=== PATIENT | male | born 1975 | race Caucasian/White ===

== ENCOUNTER 2021-05-04 15:50 | Outpatient (CLI) | payer OTHER, SELFPAY ==
[2021-05-04 16:06] LABS: Hematocrit 43.6 % (40.0-54.0); Hemoglobin 15.9 g/dL (14.0-18.0); Mean Corpuscular HGB Conc 36.5 g/dL (32.0-36.0); Mean Corpuscular Hemoglobin 32.6 pg (27.0-31.0); Mean Corpuscular Volume 89.3 fL (78.0-102.0); Mean Platelet Volume 9.3 fl (8.7-11.0); Platelet Count Result 195 K/mm3 (150-420); Red Blood Count 4.88 M/mm3 (4.70-6.10); Red Cell Distribution Width 11.8 % (11.6-14.4); White Blood Count 6.4 K/mm3 (4.8-10.8)
[2021-05-04 17:06] LABS: Alanine Aminotransferase 86 U/L (16-63); Albumin Level 4.3 g/dL (3.4-5.0); Alkaline Phosphatase 52 U/L (46-116); Bilirubin,Total 0.6 mg/dL (0.00-1.00); Blood Urea Nitrogen 15 mg/dL (7-18); Calcium 8.6 mg/dL (8.5-10.1); Carbon Dioxide 28 mmol/L (21-32); Cholesterol 260 mg/dL (0-200); Estimated Glomerular Filt Rate > 60; HDL Direct 28 mg/dL (40-60); Prostate Specific Antigen 0.7 ng/mL (< OR = 4.0); Total Protein 7.1 g/dL (6.4-8.2)
[2021-05-04 17:16] LABS: Anion Gap 10 mmol/L (8-16); Chloride 101 mmol/L (98-108); Glucose 197 mg/dL (70-99); Osmolality Calculated 293 mOsm/kg (285-295); Potassium 3.5 mmol/L (3.5-5.1); Sodium 139 mmol/L (136-145)
[2021-05-04 17:41] LABS: LDL Cholesterol Calculated 45 mg/dL (<130); Triglycerides 935 mg/dL (0-150)
[2021-05-04 18:11] LABS: Aspartate Amino Transferase 29 U/L (15-37)
[2021-05-04 18:13] LABS: LDL Cholesterol Direct 108 mg/dL (0-130)
== END 2021-05-04 15:51 | disposition home or self-care (01) ==
LOC: CHSLAB 15:53
PROVIDERS: PCP Family Medicine; Visit Provider Family Medicine
DX: I10 Essential (primary) hypertension (principal); Z80.42 Family history of malignant neoplasm of prostate
CPT/HCPCS: 36415; 80053; 80061; 83721; 84153; 85027; G0103

== ENCOUNTER 2021-05-11 08:55 | Outpatient (CLI) | payer OTHER, SELFPAY ==
--- NOTE | 2021-05-11 09:00 | EST_ITS ---
Patient Info Name: Avtar Perez Age: 45 years : 1975 Gender: Male Ht: 75 in Wt: 320 lbs BSA: 2.83 m2 HR: 82 bpm BP: 132 / 84 mmHg Heart Rhythm: Sinus Rhythm Technical Quality: Good Exam Date: 05/11/2021 9:22 AM Exam Location: [facility] Patient Status: Outpatient Admit Date: 05/11/2021 Staff Ordering Physician: Jude Velázquez DO Attending Provider: Jude Velázquez DO Exercise Technologist: Scarlet Isbell CRT Exercise Physician: Marlene Subramanian CEP Exam Type: CA stress test treadmill Study Info Indications ExerciseIntolerance - PreSyncope - SOB - A treadmill exercise stress test was performed. History/Risk Factors Hypertension: Yes History/Risk Factors Hypertension. Summary 1. 1. Negative Chris exercise stress test for ischemic ST changes by ECG criteria. 2. 2. Good functional capacity, achieving 10 METs of workload. 3. 3. Hypertensive response to exercise. 4. 4. Appropriate HR response to exercise. 5. 5. Appropriate HR recovery at 1 minute post exercise. 6. 6. No imaging with stress testing. Protocol: Chris Stress ECG Details Stage: REST Duration (min): 3 min : 39 sec Speed (mph): 0.0 Grade (%): 0 HR (bpm): 83 SBP (mmHg): 132 DBP (mmHg): 84 METS: --- Stage: REST Duration (min): 4 min : 21 sec Speed (mph): 0.0 Grade (%): 0 HR (bpm): 86 SBP (mmHg): 132 DBP (mmHg): 84 METS: --- Stage: STAGE 1 Duration (min): 1 min : 0 sec Speed (mph): 1.7 Grade (%): 10 HR (bpm): 109 SBP (mmHg): 132 DBP (mmHg): 84 METS: --- Stage: STAGE 1 Duration (min): 2 min : 0 sec Speed (mph): 1.7 Grade (%): 10 HR (bpm): 116 SBP (mmHg): 132 DBP (mmHg): 84 METS: --- Stage: STAGE 1 Duration (min): 3 min : 0 sec Speed (mph): 1.7 Grade (%): 10 HR (bpm): 120 SBP (mmHg): 148 DBP (mmHg): 80 METS: --- Stage: STAGE 2 Duration (min): 1 min : 0 sec Speed (mph): 2.5 Grade (%): 12 HR (bpm): 130 SBP (mmHg): 148 DBP (mmHg): 80 METS: --- Stage: STAGE 2 Duration (min): 2 min : 0 sec Speed (mph): 2.5 Grade (%): 12 HR (bpm): 135 SBP (mmHg): 148 DBP (mmHg): 80 METS: --- Stage: STAGE 2 Duration (min): 3 min : 0 sec Speed (mph): 2.5 Grade (%): 12 HR (bpm): 141 SBP (mmHg): 196 DBP (mmHg): 71 METS: --- Stage: STAGE 3 Duration (min): 1 min : 0 sec Speed (mph): 3.4 Grade (%): 14 HR (bpm): 155 SBP (mmHg): 196 DBP (mmHg): 71 METS: --- Stage: STAGE 3 Duration (min): 2 min : 0 sec Speed (mph): 3.4 Grade (%): 14 HR (bpm): 163 SBP (mmHg): 196 DBP (mmHg): 71 METS: --- Stage: STAGE 3 Duration (min): 2 min : 8 sec Speed (mph): 3.4 Grade (%): 14 HR (bpm): 166 SBP (mmHg): 196 DBP (mmHg): 71 METS: --- Stage: RECOVERY Duration (min): 0 min
== END 2021-05-11 08:56 | disposition home or self-care (01) ==
LOC: CHSCARD 08:56
PROVIDERS: PCP Family Medicine; Visit Provider Family Medicine
DX: R06.02 Shortness of breath (principal); I10 Essential (primary) hypertension
CPT/HCPCS: 93017

== ENCOUNTER 2022-09-09 00:50 | Day surgery (SDC) | payer OTHER, SELFPAY ==
[2022-08-26 15:09] VITALS: BMI 37.5
[2022-09-09 06:31] VITALS: BP 143/48; PULSE 85; RESP 17; TEMP 36.4; O2SAT 95
[2022-09-09] MEDS: LACTATED RINGERS 1,000 ML 150 ML IV CONT (06:36)
--- NOTE | 2022-09-09 06:49 | P.PNAN_ITS ---
Anes - Initial Pre Proc Eval Procedure: Operation Date: 09/09/22 07:30 Proposed Procedures p Screening Colonoscopy - Jai Anderson DO Date/Time: 09/09/22 06:49 Surgeon: Jai Anderson DO Pre Op Diagnosis: family hx of colon ca Patient Data Age: 46 Gender: M Height: 1.91 m Weight: 144.9 kg Last Vital Signs Temp 36.4 C 09/09/22 06:31 Pulse 85 09/09/22 06:31 Resp 17 09/09/22 06:31 BP 143/48 H 09/09/22 06:31 Pulse Ox 95 09/09/22 06:31 O2 Del Method Room Air 09/09/22 06:31 Allergies Allergy/AdvReac Type Severity Reaction Status Date / Time No Known Allergies Allergy Verified 09/09/22 06:27 Home Medications Medication Instructions Recorded Confirmed Type atorvastatin 40 mg tablet 40 mg PO DAILY #90 tabs 07/30/22 09/09/22 Rx lisinopril 20 mg tablet 20 mg PO DAILY #90 tabs 07/30/22 09/09/22 Rx Patient hx anesthesia problems: none Family hx anesthesia problems: none Results Review: All pre-operative results and documents have been reviewed as part of the pre- operative evaluation. [facility] Past Medical History Medical History (Updated 09/09/22 @ 06:50 by Jeremías Evangelista DO) Hyperlipidemia Hypertension Surgical History Surgical History Hx of tonsillectomy Family History Family History Mother Family history of diabetes mellitus Father Malignant neoplasm of prostate Social History Social History Smoking status: Never smoker Alcohol intake: current Drinks per week: 6 Substance use type: does not use Living arrangements: with family Spiritual care concerns: No Anes - Eval Final PreProcedure Day of Procedure 09/09/22 06:49 Patient weight: obese Heart: regular rate and rhythm Lungs: clear to auscultation Airway: Mallampati scale class II Neurological: alert and oriented Last oral intake: >/= 8 hours ASA classification: III Emergent: no Anesthetic plan: proceed Anesthesia type and monitoring: general GIVS and standard monitoring Results Review: All pre-operative results and documents have been reviewed as part of the pre- operative evaluation. Informed Consent: The patient's anesthetic plan and its attendant risks and benefits were discussed with the patient/family/POA. Questions were solicited and answers provided to the satisfaction of the patient/family/POA.
--- NOTE | 2022-09-09 07:31 | PM.IMHP ---
H&P: HPI History of Present Illness Date/Time: 09/09/22 07:31 Chief Complaint: Fam hx colon cancer Narrative: This is a 46-year-old man who presents for colonoscopy. He has a family history of colon cancer in his father who was diagnosed in his 70s. He denies any hematochezia or melena. He has never had a colonoscopy. He denies any change in bowel habits. Review of Systems Review of Systems: All systems reviewed & are unremarkable except as noted in HPI and below Constitutional: Constitutional: Denies chills, Denies fever(s), Denies headache(s) and Denies weight loss Eyes: Eyes: Denies change in vision ENT: Denies dizziness, Denies headache(s), Denies neck mass and Denies throat swelling Cardiovascular: Cardiovascular: Denies chest pain, Denies lightheadedness and Denies dyspnea Respiratory: Respiratory: Denies cough, Denies dyspnea and Denies wheezing Gastrointestinal: Gastrointestinal: Denies abdominal pain, Denies change in bowel habits, Denies nausea and Denies vomiting Genitourinary: Genitourinary: Denies hematuria and Denies dysuria Musculoskeletal: Musculoskeletal: Reports as per HPI Integumentary/Breasts: Skin/Breast: Reports as per HPI Neurologic: Denies dizziness and Denies headache(s) Allergic/Immunologic: Allergic/Immunologic: Denies throat swelling and Denies wheezing [facility] Past Medical History Medical History (Updated 09/09/22 @ 06:50 by Jeremías Evangelista DO) Hyperlipidemia Hypertension Surgical History Surgical History Hx of tonsillectomy Family History Family History Mother Family history of diabetes mellitus Father Malignant neoplasm of prostate Social History Social History Smoking status: Never smoker Alcohol intake: current Drinks per week: 6 Substance use type: does not use Living arrangements: with family Spiritual care concerns: No Meds Home Medications and Allergies Home Medications Medication Instructions Recorded Confirmed Type atorvastatin 40 mg tablet 40 mg PO DAILY #90 tabs 07/30/22 09/09/22 Rx lisinopril 20 mg tablet 20 mg PO DAILY #90 tabs 07/30/22 09/09/22 Rx Allergies Allergy/AdvReac Type Severity Reaction Status Date / Time No Known Allergies Allergy Verified 09/09/22 06:27 Vital Signs Vital Signs - 24 hr 09/09/22 06:31 Temperature 36.4 C Pulse Rate 85 Respiratory Rate 17 Blood Pressure 143/48 H Pulse Oximetry 95 Oxygen Delivery Room Air Exam Const: General: no acute distress and alert Orientation/consciousness: patient oriented x3 HENMT: Head: normocephalic and atraumatic Ears: hearing grossly normal bilaterally Face/Nose/Sinus: Normal nares present Mouth: Yes Normal oral and palatal mucosa present Eyes: Periorbital: periorbital findings normal Sclera: sclerae normal EOM: EOMs intact bilaterally Neck: Neck: normal visual inspection, no lymphadenopathy and trachea midline Chest: Chest palpation & inspection: normal inspection of the chest Resp: Effort & Inspection: normal respiratory effort Auscultation: clear to auscultation bilaterally Cardio: Jugular venous distension: no JVD Rate: regular rate Rhythm: regular rhythm Heart sounds: S1 normal heart sound present and S2 normal heart sound present Peripheral pulses: Peripheral pulses 2+ throughout GI: Inspection: normal to inspection GI Palp: Yes Soft to palpation, No Tenderness to palpation present (GI), No Guarding due to palpation present (GI) and No Rebound tenderness present Percussion: Yes normal to percussion Auscultation: normal bowel sounds : General: Yes no CVA tenderness Back/Spine/Pelvis: Back: no CVA tenderness Neuro: General: patient oriented x3, no focal motor deficits and CN's II-XI intact bilaterally Cognition (Neuro): normal cognition Speech: normal speech M
[2022-09-09 07:53] VITALS: BP 118/85; PULSE 76; RESP 24; O2SAT 97
[2022-09-09 08:03] VITALS: BP 130/87; PULSE 70; RESP 23; O2SAT 96
[2022-09-09 08:13] VITALS: BP 134/91; PULSE 70; RESP 20; O2SAT 98
== END 2022-09-09 08:18 | disposition home or self-care (01) ==
PROVIDERS: PCP Family Medicine; Visit Provider Surgery
PROC: 0DJD8ZZ Inspection of Lower Intestinal Tract, Via Natural or Artificial Opening Endoscopic (ICD-10-PCS; CPT 45378; principal; 2022-09-09 07:30)
DX: Z12.11 Encounter for screening for malignant neoplasm of colon (principal); K57.30 Diverticulosis of large intestine without perforation or abscess without bleeding; Z80.0 Family history of malignant neoplasm of digestive organs; I10 Essential (primary) hypertension; E78.5 Hyperlipidemia, unspecified; E66.9 Obesity, unspecified; Z68.39 Body mass index [BMI] 39.0-39.9, adult
CPT/HCPCS: 45378; J2001; J2704; J7120